=== PATIENT | female | born 1970 | race Caucasian/White ===

== ENCOUNTER → 2016-10-26 | Day surgery (SDC) | payer BC ==
[~2016-10-26] MED LIST: CLARITIN10 MG PO; DITROPAN 5 MG TA5 MG PO; PANTOPRAZOLE SO40 MG PO; SYNTHROID88 MCG PO; VITAMIN D32000 UNIT PO
== END | disposition home or self-care (01) ==
LOC: OR 07:03
PROVIDERS: Surgery
PROC: 0DB98ZX Excision of Duodenum, Via Natural or Artificial Opening Endoscopic, Diagnostic (ICD-10-PCS; 2016-10-26)
PROC: 0DB48ZX Excision of Esophagogastric Junction, Via Natural or Artificial Opening Endoscopic, Diagnostic (ICD-10-PCS; 2016-10-26)
PROC: 0DB68ZX Excision of Stomach, Via Natural or Artificial Opening Endoscopic, Diagnostic (ICD-10-PCS; principal; 2016-10-26 08:45)
DX: K29.50 Unspecified chronic gastritis without bleeding (principal); E03.9 Hypothyroidism, unspecified; E66.9 Obesity, unspecified; G25.81 Restless legs syndrome; G47.33 Obstructive sleep apnea (adult) (pediatric); J45.909 Unspecified asthma, uncomplicated; Z79.899 Other long term (current) drug therapy
CPT/HCPCS: J7120

== ENCOUNTER → 2020-06-26 | Outpatient (CLI) | payer BC, OTHER ==
[~2020-06-26] MED LIST changes: +IBUPROFEN600 MG PO; +KEFLEX500 MG PO
== END ==
LOC: RAD 11:06
DX: M25.552 Pain in left hip (principal); M25.551 Pain in right hip; M25.752 Osteophyte, left hip; M25.751 Osteophyte, right hip
CPT/HCPCS: 73522

== ENCOUNTER → 2020-07-04 | Outpatient (CLI) | payer BC, OTHER | LOC: US 06-27 11:00 | DX: E03.9 Hypothyroidism, unspecified (principal) | CPT/HCPCS: 76536 ==

== ENCOUNTER → 2020-08-16 | Outpatient (CLI) | payer BC, OTHER | LOC: EXRD 12:46 | DX: R59.9 Enlarged lymph nodes, unspecified (principal) | CPT/HCPCS: 76536 ==

== ENCOUNTER → 2021-02-25 | Outpatient (CLI) | payer BC | LOC: CT 10:46 | DX: R06.02 Shortness of breath (principal); R60.0 Localized edema; R11.0 Nausea | CPT/HCPCS: 36415; 71275; 82565; 93970; Q9967 ==

== ENCOUNTER → 2021-03-05 | Outpatient (CLI) | payer BC | LOC: US 07:52 → EXRD 03-12 08:00 → HEART 5 03-12 09:00 | DX: R06.02 Shortness of breath (principal); R60.0 Localized edema; R11.0 Nausea | CPT/HCPCS: ECHO; 76700; 93306 ==

== ENCOUNTER → 2021-03-19 | Outpatient (CLI) | payer BC | LOC: NM 13:57 | DX: R10.9 Unspecified abdominal pain (principal); R94.8 Abnormal results of function studies of other organs and systems | CPT/HCPCS: 78264; A9541 ==

== ENCOUNTER → 2021-03-26 | Outpatient (CLI) | payer BC | LOC: NM 12:47 | DX: R10.9 Unspecified abdominal pain (principal) | CPT/HCPCS: 78226; A9537 ==

== ENCOUNTER → 2021-07-03 | Outpatient (CLI) | payer BC | LOC: EXRD 14:20 | DX: E03.9 Hypothyroidism, unspecified (principal) | CPT/HCPCS: 76536 ==